=== PATIENT | female | born 1985 | race Caucasian/White ===

== ENCOUNTER 2018-09-28 21:16 | Emergency (ER) | payer BC ==
--- NOTE | 2018-09-28 23:07 | PHYS DOC ---
Past History Past Medical History: Hypothyroid Smoking: Cigarettes Alcohol Use: Occasionally Drug Use: None Adult General Chief Complaint Chief Complaint: HYPERTENSION HPI HPI Patient is a 33-year-old female presents with headache and nausea. Patient had one episode of vomiting. EMS was called out and found elevated carbon monoxide level in her house. No home medicines have been taken. EMS also found that her blood pressure was elevated at home and recommended that she come in for further evaluation. Daughter also has similar symptoms. Symptoms seemed to be resolving the longer she is away from the house. Review of Systems Review of Systems Constitutional: Denies fever or chills [] Eyes: Denies change in visual acuity, redness, or eye pain [] HENT: Denies nasal congestion or sore throat [] Respiratory: Denies cough or shortness of breath [] Cardiovascular: No chest pain or palpitations[] GI: See history of present illness[] : Denies dysuria or hematuria [] Musculoskeletal: Denies back pain or joint pain [] Integument: Denies rash or skin lesions [] Neurologic: Denies focal weakness or sensory changes [] Endocrine: Denies polyuria or polydipsia [] All other systems were reviewed and found to be within normal limits, except as documented in this note. Allergies Allergies Allergies Coded Allergies Type Severity Reaction Last Updated Verified No Known Drug Allergies 09/28/18 No Physical Exam Physical Exam Constitutional: Well developed, well nourished, no acute distress, non-toxic appearance. [] HENT: Normocephalic, atraumatic, bilateral external ears normal, oropharynx moist, no oral exudates, nose normal. [] Eyes: PERRLA, EOMI, conjunctiva normal, no discharge. [] Neck: Normal range of motion, no tenderness, supple, no stridor. [] Cardiovascular:Heart rate regular rhythm, no murmur [] Lungs & Thorax: Bilateral breath sounds clear to auscultation [] Abdomen: Bowel sounds normal, soft, no tenderness, no masses, no pulsatile masses. [] Skin: Warm, dry, no erythema, no rash. [] Back: No tenderness, no CVA tenderness. [] Extremities: No tenderness, no cyanosis, no clubbing, ROM intact, no edema. [] Neurologic: Alert and oriented X 3, normal motor function, normal sensory function, no focal deficits noted. [] Psychologic: Affect normal, judgement normal, mood normal. [] Current Patient Data Vital Signs Vital Signs Date Time Temp Pulse Resp B/P (MAP) Pulse Ox O2 Delivery O2 Flow Rate FiO2 09/28/18 21:50 97.9 90 18 97 Room Air EKG EKG [] Radiology/Procedures Radiology/Procedures [] Course & Med Decision Making Course & Med Decision Making Pertinent Labs and Imaging studies reviewed. (See chart for details) ED course: Patient arrived, was placed in bed, in tolerated exam well. Patient was placed on her percent nonrebreather oxygen due to concern for possible carbon monoxide toxicity given history and symptoms. Carbon monoxide and ABG were obtained and sent to [facility] since [facility] does not have the ability to run that test. After the return of laboratory studies, these were discussed with patient who voiced understanding. All questions were answered. She was discharged in improved condition. French decision making: Patient has an elevated carbon monoxide level that is in the range for a smoker. No evidence of significant carbon monoxide toxicity.[] Dragon Disclaimer Dragon Disclaimer This electronic medical record was generated, in whole or in part, using a voice recognition dictation system. Departure Departure: Impression: Primary Impression: Carbon monoxide exposure Disposition: HOME, SELF-CARE Condition: IMPROVED Patient Instructions: Carbon Monoxide Poisoning Additional Instructions: Follow-up with your regular doctor in 2 days. If you do not have regular doctor list of local clinics will be provided for you. Stop smoking! Do not return to your house until it has been cleared by the fire department or the gas [employer]. Return to the ER if worsening symptoms. MICHAEL ORTIZ DO Sep 28, 2018 23:07
[2018-09-28 23:48] LABS: BGAS PH 7.39 (7.35-7.45)
[2018-09-29 00:50] VITALS: BP 133/89
== END 2018-09-29 00:55 | disposition home or self-care (01) ==
LOC: ER 21:16
DX: Z77.098 Contact with and (suspected) exposure to other hazardous, chiefly nonmedicinal, chemicals (principal); E03.9 Hypothyroidism, unspecified; F17.210 Nicotine dependence, cigarettes, uncomplicated
CPT/HCPCS: 36415; 82375; 82803; 99284